=== PATIENT | male | born 1980 | race Caucasian/White ===

== ENCOUNTER 2016-11-04 18:35 | Emergency (ER) | payer MEDICAID ==
[2016-11-04 22:38] VITALS: BP 136/96
== END 2016-11-04 22:47 | disposition home or self-care (01) ==
LOC: ED 18:35
DX: S82.831A Other fracture of upper and lower end of right fibula, initial encounter for closed fracture (principal); S93.401A Sprain of unspecified ligament of right ankle, initial encounter; W01.0XXA Fall on same level from slipping, tripping and stumbling without subsequent striking against object, initial encounter; Y93.89 Activity, other specified; Y99.8 Other external cause status; Y92.89 Other specified places as the place of occurrence of the external cause

== ENCOUNTER 2017-03-24 10:28 | Emergency (ER) | payer MEDICAID ==
[2017-03-24 13:11] VITALS: BP 148/90
== END 2017-03-24 13:11 | disposition short-term general hospital (02) ==
LOC: ED 10:28
DX: H33.21 Serous retinal detachment, right eye (principal)